=== PATIENT | female | born 1945 | race Caucasian/White ===

== ENCOUNTER 2023-01-17 19:32 | Inpatient (IN) | payer OTHER ==
[~2023-01-17] VITALS: Ht 172.7 cm; Wt 76.2 kg
[2023-01-17] MEDS ORDERED: MORPHINE SULFATE INJ 2 MG/ML DISP.SYRIN IV ONE (20:30)
[2023-01-17] MEDS ORDERED: MORPHINE SULFATE INJ 4 MG/ML DISP.SYRIN ONE (21:07)
[2023-01-17 21:27] LABS: BASOPHILS % (AUTO) 0.3 % (0.0-2.0); EOSINOPHILS # (AUTO) 0.1 K/uL (0.0-0.7); EOSINOPHILS % (AUTO) 1.1 % (0.0-6.0); HEMATOCRIT 29 % (33-45); HEMOGLOBIN 9.1 g/dL (11.5-14.8); LYMPHOCYTES # (AUTO) 0.7 K/uL (0.8-4.8); LYMPHOCYTES % (AUTO) 8.9 % (20.0-44.0); MEAN CORPUSCULAR HEMOGLOBIN 31 PG (26.0-33.0); MEAN CORPUSCULAR HGB CONC 32 g/dl (31.0-36.0); MEAN CORPUSCULAR VOLUME 96 fL (82-100); MONOCYTES # (AUTO) 1.3 K/uL (0.1-1.30); MONOCYTES % (AUTO) 15.8 % (2.0-12.0); NEUTROPHILS # (AUTO) 5.9 K/uL (1.8-8.9); NEUTROPHILS % (AUTO) 73.9 % (43.0-81.0); PLATELET COUNT (AUTO) 202 K/uL (150-450); RED BLOOD CELL COUNT(AUTO) 2.98 MIL/uL (4.0-5.2); RED CELL DISTRIBUTION WIDTH 19.4 % (11.5-15.0)
[2023-01-17 21:47] LABS: INR 1.33 (0.91-1.10); PARTIAL THROMBOPLASTIN TIME 35.1 SEC (24.3-34.3); PROTHROMBIN TIME 13.8 SECS (9.2-11.1)
[2023-01-17 21:57] LABS: CALCIUM, SERUM 8.3 mg/dL (8.5-10.1); CARBON DIOXIDE 24 mmol/L (21-32); CHLORIDE 96 mmol/L (98-107); CREATININE 1.7 mg/dL (0.6-1.3); GLUCOSE 87 mg/dL (74-106); POTASSIUM 3.9 mmol/L (3.5-5.1); SODIUM SERUM 129 mmol/L (136-145); UREA NITROGEN, BLOOD 15 mg/dL (7-18)
[2023-01-17 22:08] LABS: ALANINE AMINOTRANSFERASE 80 U/L (12-78); ALBUMIN 1.8 g/dL (3.4-5.0); ALKALINE PHOSPHATASE 195 U/L (46-116); ASPARTATE AMINOTRANSFERASE 133 U/L (15-37); BILIRUBIN,DIRECT 0.5 mg/dL (0.0-0.2); BILIRUBIN,TOTAL 0.8 mg/dL (0.2-1.0); NT-PRO BNP 2271 pg/mL (0-125); TOTAL PROTEIN, SERUM 5.3 g/dL (6.4-8.2)
[2023-01-17] MEDS ORDERED: MAGNESIUM HYDROXIDE 30 ML UDC PO PRN (23:30)
[2023-01-17] MEDS ORDERED: ONDANSETRON HCL/PF 4 MG/2 ML VIAL IVP PRN (23:30)
[2023-01-17] MEDS ORDERED: Z GUARD REMEDY 4 OZ OINT TP PRN (23:30)
[2023-01-17] MEDS ORDERED: TEMAZEPAM 15 MG CAPSULE PO PRN (23:30)
[2023-01-17] MEDS ORDERED: MAG HYDROX/AL HYDROX/SIMETH 30 ML UDC PO PRN (23:30)
[2023-01-17] MEDS ORDERED: ACETAMINOPHEN 325 MG TABLET PO PRN (23:30)
[2023-01-18] MEDS ORDERED: FUROSEMIDE 40 MG/4 ML VIAL IV ONE
[2023-01-18] MEDS ORDERED: FUROSEMIDE 40 MG/4 ML VIAL ONE (01:06)
[2023-01-18] MEDS ORDERED: MORPHINE SULFATE INJ 4 MG/ML DISP.SYRIN ONE (01:58)
[2023-01-18] MEDS ORDERED: MORPHINE SULFATE INJ 2 MG/ML DISP.SYRIN IV ONE ×2 (02:00→05:00)
[2023-01-18] MEDS ORDERED: MORPHINE SULFATE INJ 2 MG/ML DISP.SYRIN ONE (04:56)
[2023-01-18] MEDS ORDERED: ONDANSETRON 4 MG TAB.RAPDIS ONE (05:39)
[2023-01-18 07:00] VITALS: BP 105/61; TEMP 98.7; O2SAT 100
[2023-01-18] MEDS ORDERED: ONDA8TAB65 PO (08:20)
[2023-01-18] MEDS ORDERED: ATOR80TA PO (08:20)
[2023-01-18] MEDS ORDERED: ASPI-1169 PO (08:20)
[2023-01-18] MEDS ORDERED: VALA10002 PO (08:20)
[2023-01-18] MEDS ORDERED: APIX5TAB PO (08:20)
[2023-01-18] MEDS ORDERED: HYDR4TAB4 PO (08:20)
[2023-01-18] MEDS ORDERED: MORP15TA PO (08:20)
[2023-01-18] MEDS ORDERED: FOLI0.8T3 PO (08:20)
[2023-01-18] MEDS ORDERED: OMEP40CA21 PO (08:20)
[2023-01-18] MEDS ORDERED: METO25TA6 PO (08:20)
[2023-01-18] MEDS ORDERED: DOCU100T2 PO (08:20)
[2023-01-18] MEDS ORDERED: ERYT3.5O9 EACHEYE (08:35)
[2023-01-18] MEDS: FOLIC ACID 1 MG TABLET PO SCH (09:01)
[2023-01-18] MEDS: PANTOPRAZOLE 40 MG TABLET.DR PO SCH (09:01)
[2023-01-18] MEDS: APIXABAN 5 MG TABLET PO SCH ×2 (09:02→16:43)
[2023-01-18] MEDS: D5W IV SCH ×2 (09:02→20:50)
[2023-01-18] MEDS: ACYCLOVIR IV SCH ×2 (09:02→20:50)
[2023-01-18] MEDS: ASPIRIN 81 MG TAB.CHEW PO SCH (09:02)
[2023-01-18] MEDS: METOPROLOL TARTRATE 25 MG TABLET PO SCH ×2 (09:04→17:00)
[2023-01-18 09:22] LABS: BASOPHILS % (AUTO) 0.4 % (0.0-2.0); EOSINOPHILS # (AUTO) 0.1 K/uL (0.0-0.7); EOSINOPHILS % (AUTO) 1.1 % (0.0-6.0); HEMATOCRIT 29 % (33-45); HEMOGLOBIN 9.3 g/dL (11.5-14.8); LYMPHOCYTES # (AUTO) 0.7 K/uL (0.8-4.8); LYMPHOCYTES % (AUTO) 9.4 % (20.0-44.0); MEAN CORPUSCULAR HEMOGLOBIN 31 PG (26.0-33.0); MEAN CORPUSCULAR HGB CONC 32 g/dl (31.0-36.0); MEAN CORPUSCULAR VOLUME 96 fL (82-100); MONOCYTES # (AUTO) 1.2 K/uL (0.1-1.30); MONOCYTES % (AUTO) 16.4 % (2.0-12.0); NEUTROPHILS # (AUTO) 5.4 K/uL (1.8-8.9); NEUTROPHILS % (AUTO) 72.7 % (43.0-81.0); PLATELET COUNT (AUTO) 198 K/uL (150-450); RED BLOOD CELL COUNT(AUTO) 3.01 MIL/uL (4.0-5.2); RED CELL DISTRIBUTION WIDTH 19.3 % (11.5-15.0); WHITE BLOOD COUNT (AUTO) 7.5 K/uL (4.3-11.0)
[2023-01-18 09:36] LABS: CALCIUM, SERUM 8.2 mg/dL (8.5-10.1); CARBON DIOXIDE 28 mmol/L (21-32); CHLORIDE 95 mmol/L (98-107); CREATININE 1.8 mg/dL (0.6-1.3); GLUCOSE 75 mg/dL (74-106); POTASSIUM 3.9 mmol/L (3.5-5.1); SODIUM SERUM 132 mmol/L (136-145); UREA NITROGEN, BLOOD 15 mg/dL (7-18)
[2023-01-18 09:51] LABS: CHOLESTEROL 133 mg/dL (<200); HDL CHOLESTEROL 41 mg/dL (40-60); LDL 71 mg/dL (0-99); THYROID STIMULATING HORMONE 1.107 uIU/mL (0.358-3.74); TRIGLYCERIDES 82 mg/dL (30-150)
[2023-01-18] MEDS ORDERED: ALBUTEROL HALF STRENGTH 1.25 MG/3 ML VIAL.NEB NEB PRN (12:30)
[2023-01-18] MEDS: HYDROMORPHONE 1 MG/1 ML DISP.SYRIN IV PRN ×2 (13:29→18:59)
[2023-01-18 14:03] LABS: APPEARANCE,URINE CLEAR (CLEAR); BILIRUBIN,URINE NEGATIVE (NEGATIVE); BLOOD, URINE 1+ Ery/uL (NEGATIVE); COLOR,URINE YELLOW (YELLOW); KETONES,URINE NEGATIVE (NEGATIVE); LEUKOCYTE ESTERASE ,URINE NEGATIVE (NEGATIVE); NITRITE, URINE POSITIVE (NEGATIVE); PH,URINE 5.5 (5.0-8.0); PROTEIN,URINE NEGATIVE (NEGATIVE); UGLUCOSE NEGATIVE (NEGATIVE); UROBILINOGEN,URINE 0.2 EU/dL (0.2)
[2023-01-18 14:15] LABS: ADD URINE CULTURE YES; BACTERIA,URINE Moderate /HPF (None Seen); SQUAMOUS EPITHELIAL CELL,UR Few /HPF (None Seen); WBC,URINE 0-3 /HPF (0-3)
[2023-01-18 14:46] LABS: CREATININE, URINE 16.5 MG/DL (30.0-125.0); URINE SODIUM, RANDOM 93 mmol/l (40-220); URINE TOTAL PROTEIN 15.8 mg/dL (0-11.9)
[2023-01-18 16:00] VITALS: BP 94/59; TEMP 97.5; O2SAT 100
[2023-01-18 16:19] LABS: EOSINOPHIL,URINE Few
[2023-01-18] MEDS: predniSONE 20 MG TABLET PO SCH (16:42)
[2023-01-18 20:42] VITALS: BP 96/56; TEMP 98.4; O2SAT 100
[2023-01-18] MEDS ORDERED: ATORVASTATIN 40 MG TABLET PO SCH (22:00)
[2023-01-18] MEDS ORDERED: ERYTHROMYCIN BASE OPHTH 3.5 GM TUBE EACHEYE SCH (22:00)
[2023-01-19 00:20] VITALS: BP 101/69; TEMP 97.3; O2SAT 98
[2023-01-19 04:37] VITALS: BP 102/76; TEMP 97; O2SAT 98
[2023-01-19] MEDS: HYDROMORPHONE 1 MG/1 ML DISP.SYRIN IV PRN ×2 (04:46→15:07)
[2023-01-19 07:00] VITALS: BP 104/42; TEMP 97.7; O2SAT 96
[2023-01-19] MEDS: PANTOPRAZOLE 40 MG TABLET.DR PO SCH (07:54)
[2023-01-19] MEDS: D5W IV SCH (08:26)
[2023-01-19] MEDS: ACYCLOVIR IV SCH (08:26)
[2023-01-19] MEDS: FOLIC ACID 1 MG TABLET PO SCH (08:27)
[2023-01-19] MEDS: predniSONE 20 MG TABLET PO SCH (08:27)
[2023-01-19] MEDS: ASPIRIN 81 MG TAB.CHEW PO SCH (08:27)
[2023-01-19] MEDS: APIXABAN 5 MG TABLET PO SCH (08:28)
[2023-01-19] MEDS: METOPROLOL TARTRATE 25 MG TABLET PO SCH (08:29)
[2023-01-19 09:19] LABS: BASOPHILS % (AUTO) 0.1 % (0.0-2.0); HEMATOCRIT 29 % (33-45); HEMOGLOBIN 9.2 g/dL (11.5-14.8); LYMPHOCYTES # (AUTO) 0.6 K/uL (0.8-4.8); LYMPHOCYTES % (AUTO) 10.3 % (20.0-44.0); MEAN CORPUSCULAR HEMOGLOBIN 30 PG (26.0-33.0); MEAN CORPUSCULAR HGB CONC 32 g/dl (31.0-36.0); MEAN CORPUSCULAR VOLUME 96 fL (82-100); MONOCYTES # (AUTO) 0.4 K/uL (0.1-1.30); NEUTROPHILS # (AUTO) 4.6 K/uL (1.8-8.9); NEUTROPHILS % (AUTO) 82.6 % (43.0-81.0); PLATELET COUNT (AUTO) 211 K/uL (150-450); RED BLOOD CELL COUNT(AUTO) 3.04 MIL/uL (4.0-5.2); RED CELL DISTRIBUTION WIDTH 19.5 % (11.5-15.0); WHITE BLOOD COUNT (AUTO) 5.6 K/uL (4.3-11.0)
[2023-01-19 09:41] LABS: CALCIUM, SERUM 7.9 mg/dL (8.5-10.1); CARBON DIOXIDE 25 mmol/L (21-32); CHLORIDE 95 mmol/L (98-107); CREATININE 1.8 mg/dL (0.6-1.3); GLUCOSE 125 mg/dL (74-106); MAGNESIUM 2.1 mg/dL (1.8-2.4); PHOSPHORUS 3.8 mg/dL (2.5-4.9); POTASSIUM 3.8 mmol/L (3.5-5.1); SODIUM SERUM 129 mmol/L (136-145); UREA NITROGEN, BLOOD 16 mg/dL (7-18)
[2023-01-19 12:00] VITALS: BP 102/44; TEMP 97.6; O2SAT 97
[2023-01-19] MEDS ORDERED: ACYC200O6 PO (12:15)
[2023-01-19 16:00] VITALS: BP 102/56; TEMP 97.7; O2SAT 97
== END 2023-01-19 16:50 | disposition home or self-care (01) | DRG 291 ==
LOC: ER 21:42 → TRANSITION 01-18 06:32 → TELE 01-18 07:43
PROVIDERS: ADMIT Nurse Practitioner Acute Care; ATTEND Nurse Practitioner Acute Care
DX: I13.0 Hypertensive heart and chronic kidney disease with heart failure and stage 1 through stage 4 chronic kidney disease, or unspecified chronic kidney disease (principal); E43 Unspecified severe protein-calorie malnutrition; N17.0 Acute kidney failure with tubular necrosis; I50.33 Acute on chronic diastolic (congestive) heart failure; I48.20 Chronic atrial fibrillation, unspecified; E87.1 Hypo-osmolality and hyponatremia; B02.30 Zoster ocular disease, unspecified; C34.90 Malignant neoplasm of unspecified part of unspecified bronchus or lung; N18.9 Chronic kidney disease, unspecified; E78.5 Hyperlipidemia, unspecified; Z79.01 Long term (current) use of anticoagulants; Z86.73 Personal history of transient ischemic attack (TIA), and cerebral infarction without residual deficits; Z90.13 Acquired absence of bilateral breasts and nipples; Z95.3 Presence of xenogenic heart valve; Z79.899 Other long term (current) drug therapy; Z79.82 Long term (current) use of aspirin; M89.8X9 Other specified disorders of bone, unspecified site; I34.1 Nonrheumatic mitral (valve) prolapse; E88.09 Other disorders of plasma-protein metabolism, not elsewhere classified; D64.9 Anemia, unspecified; R74.01 Elevation of levels of liver transaminase levels; S80.822A Blister (nonthermal), left lower leg, initial encounter; S80.821A Blister (nonthermal), right lower leg, initial encounter; X58.XXXA Exposure to other specified factors, initial encounter; Y92.9 Unspecified place or not applicable; Z85.3 Personal history of malignant neoplasm of breast
CPT/HCPCS: 36415; 71045-TC; 76770-TC; 80048-TC; 80061-TC; 80076-TC; 81001; 82570-TC; 83735-TC; 83880; 83935-TC; 84100-TC; 84300-TC; 84443-TC; 84484-TC; 85025-TC; 85730-TC; 87086-TC; 92526; 92611-TC; 93307-TC; 93970-TC; 97112-TC; 97530-TC; A4223; G0378; J0133; J1170; J1940; J2270; J7030; J7050; J7060; Q0162

== ENCOUNTER 2023-01-30 05:06 | Inpatient (IN) | payer OTHER ==
[~2023-01-30] VITALS: Ht 162.6 cm; Wt 74.8 kg
[2023-01-30] VITALS (52 sets, daily range): BP systolic 0–142; BP diastolic 0–106; TEMP 97.4–97.5; O2SAT 0–96
[~2023-01-30 05:06] MED LIST: ACYC200O6 PO; APIX5TAB PO; ASPI-1169 PO; ATOR80TA PO; DOCU100T2 PO; ERYT3.5O9 EACHEYE; FOLI0.8T3 PO; HYDR4TAB4 PO; METO25TA6 PO; MORP15TA PO; OMEP40CA21 PO; ONDA8TAB65 PO
[2023-01-30] MEDS ORDERED: IV NS 0.9% 500 ML BAG IV ONE (06:00)
[2023-01-30] MEDS ORDERED: DOBUTamine 12.5 MG/ML VIAL IV ONE (06:26)
[2023-01-30 06:29] LABS: EOSINOPHILS % (AUTO) 0.1 % (0.0-6.0)
[2023-01-30] MEDS ORDERED: NOREPINEPHRINE 32 MG in IV NS 0.9% 218 ML IV PRN (06:30)
[2023-01-30] MEDS ORDERED: DOBUTamine 500 MG in IV D5W 210 ML IV PRN (06:30)
[2023-01-30] MEDS ORDERED: NOREPINEPHRINE 8MG/250ML RTU 250 ML IV ONE (06:33)
[2023-01-30 06:35] LABS: BASOPHILS # (AUTO) 0.2 K/uL (0.0-0.2); BASOPHILS % (AUTO) 0.7 % (0.0-2.0); HEMATOCRIT 30 % (33-45); HEMOGLOBIN 9.8 g/dL (11.5-14.8); LYMPHOCYTES # (AUTO) 0.3 K/uL (0.8-4.8); MEAN CORPUSCULAR HEMOGLOBIN 31 PG (26.0-33.0); MEAN CORPUSCULAR HGB CONC 32 g/dl (31.0-36.0); MEAN CORPUSCULAR VOLUME 95 fL (82-100); MONOCYTES # (AUTO) 0.6 K/uL (0.1-1.30); MONOCYTES % (AUTO) 1.6 % (2.0-12.0); NEUTROPHILS # (AUTO) 33.3 K/uL (1.8-8.9); NEUTROPHILS % (AUTO) 96.6 % (43.0-81.0); PLATELET COUNT (AUTO) 198 K/uL (150-450); RED CELL DISTRIBUTION WIDTH 21.7 % (11.5-15.0)
[2023-01-30 06:38] LABS: CALCIUM, SERUM 8.3 mg/dL (8.5-10.1); CARBON DIOXIDE 28 mmol/L (21-32); CHLORIDE 93 mmol/L (98-107); CREATININE 2.8 mg/dL (0.6-1.3); GLUCOSE 86 mg/dL (74-106); POTASSIUM 3.9 mmol/L (3.5-5.1); SODIUM SERUM 125 mmol/L (136-145); UREA NITROGEN, BLOOD 34 mg/dL (7-18)
[2023-01-30 06:39] LABS: WHITE BLOOD COUNT (AUTO) 34.5 K/uL (4.3-11.0)
[2023-01-30 06:50] LABS: ALANINE AMINOTRANSFERASE 63 U/L (12-78); ALBUMIN 1.6 g/dL (3.4-5.0); ALKALINE PHOSPHATASE 303 U/L (46-116); ASPARTATE AMINOTRANSFERASE 94 U/L (15-37); BILIRUBIN,DIRECT 1.2 mg/dL (0.0-0.2); BILIRUBIN,TOTAL 1.7 mg/dL (0.2-1.0); NT-PRO BNP 7914 pg/mL (0-125); TOTAL PROTEIN, SERUM 5.3 g/dL (6.4-8.2)
[2023-01-30 07:00] LABS: INR 1.34 (0.91-1.10); PROTHROMBIN TIME 13.9 SECS (9.2-11.1)
[2023-01-30] MEDS ORDERED: AMIODARONE 150 MG/3 ML VIAL IV ONE (07:00)
[2023-01-30] MEDS ORDERED: IOHEXOL-350 100 ML VIAL IV ONE (07:02)
[2023-01-30] MEDS ORDERED: IV NS 0.9% 0 ML IV ONE (07:02)
[2023-01-30] MEDS ORDERED: CT SWABBABLE VALVE TRANS SET 1 EA INFUS.SET MC ONE (07:02)
[2023-01-30 07:06] LABS: PARTIAL THROMBOPLASTIN TIME 134.1 SEC (24.3-34.3)
[2023-01-30] MEDS ORDERED: IV NS 0.9% 1,000 ML BAG IV ONE (07:30)
[2023-01-30] MEDS ORDERED: VALA10002 PO (08:21)
[2023-01-30] MEDS ORDERED: POLY17PO4 PO (08:21)
[2023-01-30] MEDS ORDERED: HYDR8TAB2 PO (08:21)
[2023-01-30] MEDS: APIXABAN 5 MG TABLET PO SCH ×3 (09:00→16:30)
[2023-01-30] MEDS ORDERED: POLYETHYLENE GLYCOL 3350 17 GM POWD.PACK PO PRN (09:00)
[2023-01-30] MEDS: MORPHINE SULFATE IR 15 MG TABLET PO SCH ×2 (09:00→16:30)
[2023-01-30] MEDS: ASPIRIN 81 MG TAB.CHEW PO SCH ×2 (09:00→13:46)
[2023-01-30] MEDS ORDERED: ACETAMINOPHEN 325 MG TABLET PO PRN (09:30)
[2023-01-30] MEDS ORDERED: ZOLPIDEM TARTRATE 5 MG TABLET PO PRN (09:30)
[2023-01-30] MEDS ORDERED: IV NS 0.9% 1,000 ML IV PRN (09:30)
[2023-01-30] MEDS ORDERED: Z GUARD REMEDY 4 OZ OINT TP PRN (09:30)
[2023-01-30] MEDS ORDERED: HYDROMORPHONE INJ 2 MG/ML DISP.SYRIN IV PRN (09:30)
[2023-01-30] MEDS ORDERED: MAG HYDROX/AL HYDROX/SIMETH 30 ML UDC PO PRN (09:30)
[2023-01-30] MEDS ORDERED: ONDANSETRON HCL/PF 4 MG/2 ML VIAL IVP PRN (09:30)
[2023-01-30] MEDS ORDERED: MAGNESIUM HYDROXIDE 30 ML UDC PO PRN (09:30)
[2023-01-30] MEDS ORDERED: DOCUSATE SODIUM 100 MG CAPSULE PO PRN (10:00)
[2023-01-30] MEDS ORDERED: MEROPENEM 500 MG in IV NS 0.9% 50 ML IV SCH (10:00)
[2023-01-30] MEDS ORDERED: HYDROMORPHONE HCL 2 MG TABLET PO PRN ×2 (10:30)
[2023-01-30] MEDS ORDERED: ONDANSETRON 4 MG TAB.RAPDIS PO PRN (10:30)
[2023-01-30 10:57] LABS: ABG BASE EXCESS -3.8 mmol/L; ABG OXYGEN SATURATION 97.9 % (92.0-98.5); ABG PCO2 30.4 mmHg (35.0-45.0); ABG PH 7.429 (7.350-7.450); ABG PO2 106.8 mmHg (75.0-100.0); AaDO2 121.8 mmHg; COHb 0.6 % (0.5-1.5); MetHb 0.2 % (0.0-1.5); O2Hb 97.1 % (94.0-97.0); SITE, ABG Right Femoral
[2023-01-30] MEDS: VALACYCLOVIR HCL 500 MG TABLET PO SCH ×2 (11:00→13:44)
[2023-01-30] MEDS ORDERED: VANCOMYCIN 1 GM in IV D5W 250 ML IV ONE (11:00)
[2023-01-30] MEDS: PANTOPRAZOLE 40 MG/PACK PACK PO SCH ×2 (11:00→13:44)
[2023-01-30] MEDS: HYDROCORTISONE SOD SUCCINATE 100 MG/2 ML VIAL IV SCH ×2 (11:28→16:29)
[2023-01-30] MEDS: PHENYLEPHRINE 50 MG in IV NS 0.9% 245 ML IV PRN ×2 (11:51→16:06)
[2023-01-30] MEDS ORDERED: VALACYCLOVIR HCL 500 MG TABLET PO SCH (13:00)
[2023-01-30 13:17] LABS: ANISOCYTOSIS 1+; BASOPHILS % (MANUAL) 0 % (0.0-2.0); EOSINOPHILS % (MANUAL) 0 % (0-4); HYPOCHROMASIA 1+; LYMPHOCYTES % (MANUAL) 5 % (16-48); MONOCYTES % (MANUAL) 3 % (0-11.0); NEUTROPHILS % (MANUAL) 92 (42-76); PLATELET ESTIMATE ADEQUATE
[2023-01-30] MEDS ORDERED: IV NS 0.9% 500 ML IV ONE (13:30)
[2023-01-30] MEDS ORDERED: DEXTROSE 50%-WATER 50 ML DISP.SYRIN IV ONE (14:53)
[2023-01-30] MEDS ORDERED: EPINEPHRINE (1:10,000) SYRINGE 1 MG/10 ML DISP.SYRIN IVP ONE (14:53)
[2023-01-30] MEDS ORDERED: NOREPINEPHRINE 8 MG in IV NS 0.9% 242 ML IV PRN (15:00)
[2023-01-30] MEDS ORDERED: PROPOFOL 10MG/ML 50ML 50 ML IV PRN (15:00)
[2023-01-30] MEDS ORDERED: PROPOFOL 100 ML IV PRN (15:00)
[2023-01-30] MEDS: NOREPINEPHRINE 8 MG in IV NS 0.9% 242 ML IV PRN ×2 (15:54→16:07)
[2023-01-30 17:15] LABS: ABG BASE EXCESS -23.4 mmol/L; ABG OXYGEN SATURATION 99.8 % (92.0-98.5); ABG PCO2 22.2 mmHg (35.0-45.0); ABG PH 7.029 (7.350-7.450); ABG PO2 447.6 mmHg (75.0-100.0); ABG TOTAL HEMOGLOBIN 9.7 G/dL (12.0-16.0); AaDO2 243.2 mmHg; COHb 0.3 % (0.5-1.5); MetHb 0.4 % (0.0-1.5); O2Hb 99.1 % (94.0-97.0); PEEP,BG 0 cm H2O; SITE, ABG Right Femoral; VT, ABG 550 mL
[2023-01-30] MEDS ORDERED: SODIUM BICARBONATE SYR 50 MEQ/50 ML DISP.SYRIN IV ONE (17:30)
[2023-01-30] MEDS ORDERED: VASOPRESSIN INJ 40 UNIT in IV NS 0.9% 38 ML IV PRN (17:30)
[2023-01-30] MEDS ORDERED: MORPHINE SULFATE PF DRIP 250 MG in IV D5W 240 ML IV PRN (18:00)
[2023-01-30] MEDS ORDERED: Sodium Bicarbonate 150 MEQ in IV D5W 1,000 ML IV SCH (18:00)
[2023-01-30] MEDS ORDERED: DC PROPOFOL WHEN EXTUBATED XX PRN (19:00)
[2023-02-01] MEDS ORDERED: VANCOMYCIN 1 GM in IV D5W 250 ML IV SCH (11:00)
== END 2023-01-30 20:25 | DRG 871 ==
LOC: ER 05:06 → ICU 09:22
PROVIDERS: ADMIT Internal Medicine; ATTEND Internal Medicine
PROC: 02HV33Z Insertion of Infusion Device into Superior Vena Cava, Percutaneous Approach (ICD-10-PCS; principal; 2023-01-30)
PROC: B548ZZA Ultrasonography of Superior Vena Cava, Guidance (ICD-10-PCS; 2023-01-30)
PROC: 5A2204Z Restoration of Cardiac Rhythm, Single (ICD-10-PCS; 2023-01-30)
PROC: 5A1935Z Respiratory Ventilation, Less than 24 Consecutive Hours (ICD-10-PCS; 2023-01-30)
PROC: 0BH17EZ Insertion of Endotracheal Airway into Trachea, Via Natural or Artificial Opening (ICD-10-PCS; 2023-01-30)
DX: A41.9 Sepsis, unspecified organism (principal); E43 Unspecified severe protein-calorie malnutrition; N17.0 Acute kidney failure with tubular necrosis; R65.21 Severe sepsis with septic shock; J96.91 Respiratory failure, unspecified with hypoxia; C78.7 Secondary malignant neoplasm of liver and intrahepatic bile duct; C78.00 Secondary malignant neoplasm of unspecified lung; I13.0 Hypertensive heart and chronic kidney disease with heart failure and stage 1 through stage 4 chronic kidney disease, or unspecified chronic kidney disease; C79.51 Secondary malignant neoplasm of bone; E22.2 Syndrome of inappropriate secretion of antidiuretic hormone; Z51.5 Encounter for palliative care; Z66 Do not resuscitate; Z90.13 Acquired absence of bilateral breasts and nipples; Z95.2 Presence of prosthetic heart valve; Z86.19 Personal history of other infectious and parasitic diseases; Z86.73 Personal history of transient ischemic attack (TIA), and cerebral infarction without residual deficits; Z79.01 Long term (current) use of anticoagulants; Z79.82 Long term (current) use of aspirin; Z79.899 Other long term (current) drug therapy; N18.9 Chronic kidney disease, unspecified; I48.91 Unspecified atrial fibrillation; E88.09 Other disorders of plasma-protein metabolism, not elsewhere classified; E78.5 Hyperlipidemia, unspecified; I50.9 Heart failure, unspecified; E86.1 Hypovolemia; I35.1 Nonrheumatic aortic (valve) insufficiency; D63.8 Anemia in other chronic diseases classified elsewhere; R57.1 Hypovolemic shock; R60.1 Generalized edema; Z85.3 Personal history of malignant neoplasm of breast
CPT/HCPCS: 31720; 36415; 36600; 71045-TC; 74018; 80048-TC; 80076-TC; 82533; 82803-TC; 82962-TC; 83880; 84484-TC; 85025-TC; 85730-TC; 87040-TC; 94002-TC; 94799-TC; A4223; A6403; G0378; J0171; J1250; J1720; J2185; J2274; J3370; J3490; J7030; J7040; J7050; J7060; J7070; Q9967